=== PATIENT | female | born 1925 | race Asian ===

== ENCOUNTER 2016-07-05 15:50 | Inpatient (IN) | payer OTHER ==
[~2016-07-05] VITALS: Ht 152.4 cm; Wt 45.4 kg
--- NOTE | 2016-07-05 15:56 | NUR ---
Dr. Ruelas evaluating patient while still on ambulance gurney in [place].
[2016-07-05] MEDS ORDERED: LABETALOL 100 MG/20 ML VIAL IVP ONE ×3 (16:05→18:30)
--- NOTE | 2016-07-05 16:08 | NUR ---
Patient transferred to bed 6 for further care. PROCESS CONTROL BOARD OPERATOR evaluating patient at bedside.
[2016-07-05 16:11] VITALS: BP 230/109
[2016-07-05] MEDS ORDERED: ZESTRIL20 MG PO (16:35)
[2016-07-05] MEDS ORDERED: BROMSITE5 ML OP (16:35)
[2016-07-05] MEDS ORDERED: MOTRIN600 MG PO (16:35)
[2016-07-05] MEDS ORDERED: HYDRALAZINE PO (16:35)
[2016-07-05] MEDS ORDERED: BESIVANCE 5 ML5 ML LEFT EYE (16:35)
[2016-07-05] MEDS ORDERED: MYCELEX10 MG MM (16:35)
[2016-07-05] MEDS ORDERED: LOTRIMIN 1%30 GM TP (16:35)
[2016-07-05] MEDS ORDERED: PRED FORTE 1% OP5 ML OP (16:35)
[2016-07-05] MEDS ORDERED: METOPROLOL TART50 M1 PO (16:35)
[2016-07-05] MEDS ORDERED: PRAVASTATIN SOD40 MG PO (16:35)
--- NOTE | 2016-07-05 16:57 | NUR ---
89/F sangeetha from [facility] for evaluation of elevated blood pressure. Per EMS, nurse at facility was checking patient's vital signs and noted a high blood pressure so she called paramedics. Last blood pressure given to me by paramedics was 235/106. Patient denies pain. Denies SULTANA, denies changes in vision. 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 Patient is AOX4, no SOB, denies chest pain. Pt states she took all her meds this am. Hx HTN.
--- NOTE | 2016-07-05 17:58 | NUR ---
Patient appears to be resting comfortably in bed. Respirations even and unlabored.
--- NOTE | 2016-07-05 19:13 | NUR ---
Pt report given to Glenn LEIGH. Transfer of care at this time.
[2016-07-05] MEDS ORDERED: METOPROLOL SUCCINATE 50 MG TABER PO ONE (19:25)
[2016-07-05] MEDS ORDERED: ENALAPRILAT 2.5 MG/2 ML VIAL IVP ONE (19:55)
[2016-07-05] MEDS ORDERED: cloNIDine 0.1 MG TAB PO ONE (20:40)
[2016-07-05] MEDS ORDERED: ONDANSETRON 4 MG/2 ML VIAL IVP PRN (20:45)
[2016-07-05] MEDS ORDERED: MORPHINE SULFATE 2 MG/ML SYR IVP PRN (20:45)
[2016-07-05] MEDS ORDERED: DOCUSATE SODIUM 100 MG GELCAP PO PRN (20:45)
[2016-07-05] MEDS ORDERED: ACETAMINOPHEN 325 MG TAB PO PRN (20:45)
[2016-07-05] MEDS: LISINOPRIL 20 MG TAB PO SCH (20:50)
[2016-07-05] MEDS ORDERED: IBUPROFEN 600 MG TAB PO PRN (20:50)
[2016-07-05] MEDS ORDERED: NON-FORMULARY ITEM (Hydralazine HCl (Hydralazine Hcl) 100 MG) PO SCH (20:50)
[2016-07-05] MEDS ORDERED: CLOTRIMAZOLE 10 MG MM SCH (20:50)
[2016-07-05] MEDS ORDERED: BROMFENAC SODIUM OP SCH (21:00)
[2016-07-05] MEDS ORDERED: CLOTRIMAZOLE 1% 30 GM CRM TUBE TP SCH (21:00)
[2016-07-05] MEDS: METOPROLOL 50 MG TAB PO SCH ×2 (21:00→22:28)
--- NOTE | 2016-07-05 21:24 | NUR ---
Patient will be admitted to care of DR PATEL. Admited to TELE 108A. Will go to rooM 108A. Belongings list completed. Report to PHUONG LEIGH.
[2016-07-05 21:30] VITALS: BP 187/77
--- NOTE | 2016-07-05 21:30 | NUR ---
Admitted from ER, with chief complaint of HTN. 89 y/o ,Female, Cooperative, AOX4, ABLE TO VERBALIZE NEEDS. PT AMBULATES INDEPENDENTLY WITH STEADY GAIT AND STANDBY ASSIST. BP 187/77, PT DENIES CP, SOB, DIZZINESS, N/V, OR S/S OF ACUTE DISTRESS. VOCAL TEACHER IN PLACE. PT WEARS GLASSES, BILATERAL HEARING AIDS, UPPER AND LOWER DENTURES. ALL NEEDS MET AT THIS TIME. IV ACCESS ASYMPTOMATIC, PATENT AND INTACT. IVF INFUSING WELL. oriented to call light, bed, phone,television, bathroom, smoking policy, visiting hours, procedures, ID bracelet on. Belongings list checked. DISCUSSED AND REVIEWED PLAN OF CARE WITH PT. PT VERBALIZES UNDERSTANDING. SAFETY MEASURES ENSURED. CALL LIGHT WITHIN REACH. PT ENCOURAGED TO CALL FOR HELP WHEN NEEDING ASSISTANCE. WILL CONTINUE TO MONITOR.
[2016-07-05] MEDS ORDERED: cefTRIAXone 1,000 MG VIAL ONE (22:23)
[2016-07-05] MEDS: NACL 0.9% 500 ML IV SCH (22:29)
--- NOTE | 2016-07-05 22:30 | NUR ---
LOTRIMIN AND LISINOPRIL HELD DUE TO MEDS NOT AVAILABLE PER PHOTOGRAPHIC COLORIST. DUE MEDICATIONS ROCEPHIN AND METOPROLOL ADMINISTERED WITH EDUCATION. PT TOLERATED WELL. PT VERBALIZES UNDERSTANDING. IVF INFUSING WELL. ALL NEEDS MET. SAFETY MEASURES ENSURED. CALL LIGHT WITHIN REACH. WILL CONTINUE TO MONITOR.
[2016-07-06] VITALS: BP 145/63
--- NOTE | 2016-07-06 00:57 | NUR ---
DR LINK, ADMINISTRATIVE ASSISTANT FRONT DESK FOR DR PATEL, PAGED. MD MADE AWARE OF HIGH BLOOD PRESSURE 187/77 UPON ADMISSION AND 145/63 AT 0000, NO ORDERS RECEIVED FOR PRN BP MEDS. INSTRUCTED TO GIVE AM BP MEDS EARLY IF BP GOES HIGHER. MD MADE AWARE OF O2 SAT 90-91% WHILE SLEEPING, NO ORDERS FOR O2 NC, INSTRUCTED TO MONITOR AND NOTIFY MD IF O2 SAT GOES LOWER.
[2016-07-06] MEDS ORDERED: ALBUTEROL SULFATE/IPRATROPIU 3 ML SOL IH PRN (01:00)
--- NOTE | 2016-07-06 02:00 | NUR ---
NOTIFIED BY TRUCK REPAIR SUPERVISOR THAT PT WAS SEEN AMBULATING INDEPENDENTLY AT BEDSIDE. PT STATED SHE WANTED TO GO TO THE RESTROOM. PT DENIES DIZZINESS OR S/S OF ACUTE DISTRESS. PT INSTRUCTED TO CHANGE POSITIONS SLOWLY AND USE THE CALL LIGHT FOR ASSISTANCE. PT OBSERVED TO HAVE STEADY GAIT WITH STANDBY ASSISTANCE TO THE RESTROOM. CONDITION STABLE. SAFETY MEASURES AND BED ALARM ENSURED. CALL LIGHT WITHIN REACH. WILL CONTINUE TO MONITOR.
[2016-07-06 04:00] VITALS: BP 150/70
--- NOTE | 2016-07-06 04:00 | NUR ---
CONDITION STABLE. PT SLEEPING AT THIS TIME. SAFETY MEASURES ENSURED. CALL LIGHT WITHIN REACH. WILL CONTINUE TO MONITOR.
[2016-07-06] MEDS: NACL 0.9% 500 ML IV SCH ×2 (06:55→16:40)
--- NOTE | 2016-07-06 07:30 | NUR ---
RECEIVED PT REPORT FROM NIGHT NURSE AT BEDSIDE. PT IS AAOX4 ON ROOM AIR AND SHOWS NO S/S OF DISTRESS. PT ON TELE MONITORING. PT SKIN IS INTACT. PT AMB TO BR WITH A STEADY GAIT. PT HAS NOTED IV ON THE R HAND. PT BED IS LOWERED FLAT AND WITH CALL LIGHT WITHIN REACH.
--- NOTE | 2016-07-06 07:36 | NUR ---
CONDITION STABLE. ENDORSED PLAN OF CARE TO DAYSHIFT NURSE.
[2016-07-06 07:51] VITALS: BP 153/86
[2016-07-06] MEDS ORDERED: prednisoLONE 1% OP 5 ML BTL OP SCH (09:00)
[2016-07-06] MEDS ORDERED: BESIFLOXACIN HCL LEFT EYE SCH (09:00)
[2016-07-06] MEDS ORDERED: CLOTRIMAZOLE 1% 30 GM CRM TUBE TP SCH (09:00)
[2016-07-06] MEDS ORDERED: METOPROLOL 50 MG TAB PO SCH (09:00)
--- NOTE | 2016-07-06 09:00 | NUR ---
ADMINISTERED SCHEDULED MEDICATIONS. GAVE PT EDUCATION ABOUT MEDICATIONS GIVEN. PT VERBALIZED UNDERSTANDING. PT TOLERATED WELL. PT IS ON ROOM AIR AND SHOWS NO S/S OF DISTRESS NOTED.
--- NOTE | 2016-07-06 09:07 | NUR ---
PATIENT HAS BEEN SCREENED AND CATEGORIZED MODERATE NUTRITION RISK. PATIENT WILL BE SEEN WITHIN 3-5 DAYS OF ADMISSION. 07/08/16-07/10/[address]
[2016-07-06] MEDS: LACTOBACILLUS RHAMNOSUS GG 1 EACH CAP PO SCH (09:33)
[2016-07-06] MEDS: hydrALAZINE 25 MG TAB PO SCH ×3 (09:34→16:41)
[2016-07-06] MEDS: LISINOPRIL 20 MG TAB PO SCH (09:34)
[2016-07-06] MEDS: SIMVASTATIN 40 MG TAB PO SCH (09:35)
--- NOTE | 2016-07-06 09:52 | NUR ---
PT BEING SEEN BY US MELO LONG.
--- NOTE | 2016-07-06 10:48 | NUR ---
PT IN ROOM RESTING AND SHOWS NO S/S OF DISTRESS. WILL CONTINUE TO MONITOR.
[2016-07-06 11:56] VITALS: BP 151/75
--- NOTE | 2016-07-06 12:00 | NUR ---
ADMINISTERED SCHEDULED MEDICATION. PT TOLERATED WELL. PT IN BED RESTING ON ROOM AIR AND SHOWS NO S/S OF DISTRESS.
[2016-07-06] MEDS ORDERED: prednisoLONE 1% OP 5 ML BTL LEFT EYE SCH (13:30)
--- NOTE | 2016-07-06 13:30 | NUR ---
PT BEING SEEN BY DR ADAMS.
--- NOTE | 2016-07-06 14:55 | NUR ---
PT IN BED RESTING AND SHOWS NO S/S OF DISTRESS ON ROOM AIR.
--- NOTE | 2016-07-06 15:35 | NUR ---
PT BEING SEEN BY FINANCE PROFESSIONAL.
[2016-07-06 16:00] VITALS: BP 155/81
[2016-07-06] MEDS: prednisoLONE 1% OP 5 ML BTL LEFT EYE SCH ×2 (16:50→20:27)
--- NOTE | 2016-07-06 17:00 | NUR ---
ADMINISTERED SCHEDULED MEDICATIONS. PT TOLERATED WELL. PT RESTING IN BED NOW AND SHOWS NO S/S OF DISTRESS. WILL CONTINUE TO MONITOR.
[2016-07-06] MEDS: MOXIFLOXACIN 0.5% OP 3 ML BTL OP SCH (18:44)
--- NOTE | 2016-07-06 19:20 | NUR ---
GAVE PT REPORT TO NIGHT NURSE AT BEDSIDE. PT ENDORSED IN STABLE CONDITION.
--- NOTE | 2016-07-06 19:30 | NUR ---
RECEIVED REPORT FROM BAKARI LEIGH AT BEDSIDE. PT IS ALERT AWAKE ORIENTED X4. INITIAL ASSESSMENT DONE. NO S/S OF RESPIRATORY DISTRESS OR SOB NOTED. NO C/O PAIN OR ANY DISCOMFORT AT THIS TIME. PLAN OF CARE REVIEWED TO PT AND VERBALIZED UNDERSTANDING. CALL LIGHT WITHIN REACH. WILL CONTINUE TO MONITOR.
[2016-07-06 20:00] VITALS: BP 173/79
[2016-07-06] MEDS: KETOROLAC 0.5% OP 3 ML BTL OP SCH (20:27)
[2016-07-06] MEDS: METOPROLOL 50 MG TAB PO SCH (20:28)
[2016-07-07] VITALS (9 sets, daily range): BP systolic 142–184; BP diastolic 63–96
--- NOTE | 2016-07-07 00:20 | NUR ---
PT IS SLEEPING RIGHT NOW BUT EASILY AROUSABLE. NO S/S OF ANY DISCOMFORT AT THIS TIME. ALL NEEDS ARE ATTENDED. CALL LIGHT WITHIN REACH. WILL CONTINUE TO MONITOR.
[2016-07-07] MEDS: NACL 0.9% 500 ML IV SCH ×3 (03:35→20:10)
--- NOTE | 2016-07-07 05:20 | NUR ---
AM CARE RENDERED. BED LINEN CHANGED. INSTRUCTED PT TO REPOSITION. KEPT CLEAN AND DRY. CALL LIGHT WITHIN REACH. WILL CONTINUE TO MONITOR.
--- NOTE | 2016-07-07 07:10 | NUR ---
RECEIVED PT REPORT FROM NIGHT NURSE AT BEDSIDE. PT IS AAOX4 AND SHOWS NO S/S OF DISTRESS ON ROOM AIR. PT SKIN IS INTACT. PROVIDED STAND BY ASSIST WHILE PT AMB TO BR AND TO BED WITH A STEADY GAIT. PT DENIES ANY SOB, CHEST PAIN, DIZZINESS, OR PAIN. PT IS ON TELE MONITORING. NOTED IV ON THE R HAND WITH IVF'S RUNNING. PT BED IS LOWERED FLAT AND CALL LIGHT IS WITHIN REACH.
--- NOTE | 2016-07-07 07:17 | NUR ---
PT HAS NO S/S OF ANY DISCOMFORT. PLAN OF CARE ENDORSED TO BAKARI LEIGH AT BEDSIDE FOR CONTINUITY OF CARE.
--- NOTE | 2016-07-07 07:37 | NUR ---
PT IN BED SITTING ON THE SIDE EATING BREAKFAST. PT IS TOLERATING WELL.
[2016-07-07] MEDS ORDERED: hydrALAZINE 20 MG/ML VIAL IVP SCH (08:06)
[2016-07-07] MEDS: LACTOBACILLUS RHAMNOSUS GG 1 EACH CAP PO SCH (08:44)
[2016-07-07] MEDS: SIMVASTATIN 40 MG TAB PO SCH (08:45)
[2016-07-07] MEDS: LISINOPRIL 20 MG TAB PO SCH (08:46)
[2016-07-07] MEDS: METOPROLOL 50 MG TAB PO SCH (08:46)
[2016-07-07] MEDS: KETOROLAC 0.5% OP 3 ML BTL OP SCH ×2 (08:48→20:07)
[2016-07-07] MEDS: MOXIFLOXACIN 0.5% OP 3 ML BTL OP SCH ×3 (08:48→17:33)
--- NOTE | 2016-07-07 09:00 | NUR ---
ADMINISTERED SCHEDULED MEDICATIONS. PT TOLERATED WELL. DR PATEL AND DR ADAMS SAW PT AND ARE AWARE OF PT HIGH BP. DR ADVISED NOT TO GIVE SCHEDULED HYDRALAZINE 100MG PO UNTIL BP IS REASSESSED WITHIN 30 MIN AFTER GIVEN HYDRALAZINE 10MG IVP. WILL CONTINUE TO MONITOR PT CARE.
--- NOTE | 2016-07-07 09:42 | NUR ---
REASSESSED PT BP 152/63 HR 80. PT IS AAOX4 AND SHOWS NO S/S OF DISTRESS ON ROOM AIR. DR PATEL WAS MADE AWARE OF PT BP AND ORDERED TO GIVE MORNING SCHEDULED HYDRALAZINE 100MG PO.
--- NOTE | 2016-07-07 10:10 | NUR ---
ADMINISTERED SCHEDULED MEDICATIONS. PT BP WAS 142/69 HR 81. PT TOLERATED ACTIVITY WELL. PT EDUCATION ABOUT SIDE EFFECTS OF TAKEN BLOOD PRESSURE MEDICATION AND TAUGHT HOW TO USE CALL LIGHT BEFORE GETTING UP FROM BED TO USE RESTROOM. WILL CONTINUE TO MONITOR.
[2016-07-07] MEDS: hydrALAZINE 25 MG TAB PO SCH ×3 (10:15→17:32)
[2016-07-07] MEDS: prednisoLONE 1% OP 5 ML BTL LEFT EYE SCH ×4 (10:16→20:08)
--- NOTE | 2016-07-07 10:50 | NUR ---
PT RESTING COMFORTABLY IN BED AND SHOWS NO S/S OF DISTRESS ON ROOM AIR. ALL NEEDS WERE MET. WILL CONTINUE TO MONITOR.
--- NOTE | 2016-07-07 12:20 | NUR ---
PT IN BED RESTING AND SHOWS NO S/S OF DISTRESS ON ROOM AIR. WILL CONTINUE TO MONITOR.
--- NOTE | 2016-07-07 13:05 | NUR ---
ADMINISTERED SCHEDULED MEDICATIONS. PT TOLERATED WELL. PT IS RESTING COMFORTABLY AND SHOWS NO S/S OF DISTRESS ON ROOM AIR.
--- NOTE | 2016-07-07 14:20 | NUR ---
SS NOTE: PER ABI FROM [facility] ([phone]), PT IS CURRENTLY ON SERVICE WITH THEM AND WAS MADE AWARE THAT PT WILL POSSIBLY BE DISCHARGED TODAY. SHE STATED THAT THEY WILL FOLLOW UP WITH PT AT [facility].
--- NOTE | 2016-07-07 14:30 | NUR ---
PT IS IN BED RESTING COMFORTABLY IN BED WITH NO S/S OF DISTRESS ON ROOM AIR.
--- NOTE | 2016-07-07 14:50 | NUR ---
PT STATED "I DON'T FEEL GOOD. I CANNOT EAT." PT STATED SHE FEELS NAUSEATED AND FEELING LIKE SHE WANTS TO VOMIT. DR ADAMS IS AWARE AND ORDERED ZOFRAN FOR PT. RN GOT BP AND IT WAS 184/78. DR ADAMS IS AWARE AND ORDERED HYDRALAZINE 10MG IVP. PT DENIES SOB, CHEST PAIN, AND HEADACHE. PT STATES HER VISION IS BLURRY. WILL NOTIFY MD AND MONITOR PT BP.
--- NOTE | 2016-07-07 15:30 | NUR ---
ADMINISTERED HYDRALAZINE 10MG IVP. BP 184/78 HR 79. WILL REASSESS BP.
[2016-07-07] MEDS: hydrALAZINE 20 MG/ML VIAL IVP PRN (15:31)
--- NOTE | 2016-07-07 16:00 | NUR ---
PT BP IS 178/79, HR 77. WILL NOTIFY DR ADAMS. PT DENIES HEADACHE, DIZZINESS, SOB, AND CHEST PAIN. PT SHOWS NO S/S OF DISTRESS. WILL CONTINUE TO MONITOR.
--- NOTE | 2016-07-07 16:05 | NUR ---
DR ADAMS IS AWARE OF BP. MD ADVISES TO RECHECK AND USE DIFFERENT MACHINE.
--- NOTE | 2016-07-07 16:10 | NUR ---
CAME INTO PT ROOM PT IV WAS LEAKING. IV WAS DISCONTINUED. NEW IV LINE WAS DONE ON THE L FA 22 GAUGE. IVF'S RUNNING THROUGH PATENT AND INTACT IV.
--- NOTE | 2016-07-07 16:15 | NUR ---
PT BP WAS REASSESSED WITH NEW BP MACHINE. BP WAS 164/[address] ADAMS WAS NOTIFIED.
--- NOTE | 2016-07-07 17:36 | NUR ---
ADMINISTERED SCHEDULED MEDICATIONS. PT IS ON ROOM AIR AND SHOWS NO S/S OF DISTRESS NOTED. ASSESS BP AT 164/77 HR 78. WILL CONTINUE TO MONITOR PT.
--- NOTE | 2016-07-07 18:00 | NUR ---
PT WAS FOUND AMB TO BR WITH IV LINE DISCONNECTED FROM IV PUMP. IV LINE WAS BLEEDING RN CLEANED IT AND DISINFECTED IT WITH ALCOHOL SWABS. IV LINE IS CONNECTED BACK TO IV CLEAN PATENT AND INTACT. PT BED IS LOWERED FLAT AND WITH CALL LIGHT WITHIN REACH. PT DENIES NO PAIN AT IV SITE, NO HEADACHES, NO SOB, AND NO CHEST PAIN. PT WAS EDUCATED IN USING THE CALL LIGHT BEFORE GOING TO USE THE RESTROOM.
--- NOTE | 2016-07-07 19:20 | NUR ---
GAVE REPORT TO NIGHT NURSE AT BEDSIDE. PT ENDORSED IN STABLE CONDITION.
--- NOTE | 2016-07-07 19:25 | NUR ---
RECEIVED PT AWAKE ON BED, AAOX4, VITAL SIGNS STABLE, BP SLIGHTLY ELEVATED, ASYMPTOMATIC, DENIES ANY PAIN, IVF INFUSING WELL, POC DISCUSSED, SAFETY MEASURES IN PLACE, CALL LIGHT WITHIN REACH.
[2016-07-07] MEDS: METOPROLOL 25 MG TAB PO SCH (20:04)
[2016-07-07] MEDS: ISOSORBIDE DINITRATE 10 MG TAB PO SCH (20:04)
--- NOTE | 2016-07-07 20:31 | NUR ---
STARTED ON BP MEDICATION WITH EDUCATION PROVIDED, EYE DROPS ADMINISTERED, REFUSED DINNER, OFFERED OTHER KIND OF FOOD BUT PT REFUSED AT THIS TIME, ALL NEEDS ATTENDED.
[2016-07-07] MEDS ORDERED: METOPROLOL 50 MG TAB PO SCH (21:00)
--- NOTE | 2016-07-07 23:00 | NUR ---
PT AMBULATED TO BR WITH STEADY GAIT AND VOIDED FREELY, MONITORED CLOSELY.
[2016-07-08] VITALS: BP 133/80
--- NOTE | 2016-07-08 | NUR ---
PT SLEEPING, EASILY AROUSABLE, VITAL SIGNS STABLE, DENIES ANY PAIN, IVF INFUSING WELL, CONTINUE TO MONITOR CLOSELY.
[2016-07-08 04:00] VITALS: BP 141/71
--- NOTE | 2016-07-08 04:00 | NUR ---
PT SLEEPING, EASILY AROUSABLE, VITAL SIGNS STABLE, DENIES ANY PAIN, MONITORED CLOSELY.
--- NOTE | 2016-07-08 07:25 | NUR ---
PT AWAKE, NO DISTRESS NOTED, REPORT GIVEN TO LU ELKINS FOR CONTINUITY OF CARE.
--- NOTE | 2016-07-08 07:26 | NUR ---
RECEIVED REPORT OF PT AT BEDSIDE FROM [facility] NURSE. INTRODUCED OURSELVES AND UPDATED THE BOARD. PT IS ALERT AWAKE AND ORIENTED. PT HAS IV ON L F/A 22 G RUNNING NS@50ML/HR. BP WAS 200/79, PULSE 82. WILL GIVE PRN HYDRALAZINE. PT HAS NO OTHER COMPLAINTS AT THIS TIME. PT IS AMBULATORY WITH ASSIST. CALL LIGHT WITHIN REACH. WILL CONTINUE TO MONITOR.
[2016-07-08] MEDS: hydrALAZINE 20 MG/ML VIAL IVP PRN (07:53)
[2016-07-08 08:00] VITALS: BP 200/79
--- NOTE | 2016-07-08 08:10 | NUR ---
RECHECKED BP, 159/85, PULSE 96. WILL CONTINUE TO MONITOR.
[2016-07-08] MEDS ORDERED: POTASSIUM CHLORIDE 10 MEQ TABER PO SCH (08:39)
[2016-07-08] MEDS: NACL 0.9% 500 ML IV SCH ×2 (08:55→13:24)
[2016-07-08] MEDS: hydrALAZINE 25 MG TAB PO SCH ×3 (09:00→16:29)
[2016-07-08] MEDS: KETOROLAC 0.5% OP 3 ML BTL OP SCH ×2 (09:50→20:26)
--- NOTE | 2016-07-08 09:50 | NUR ---
PASSED MORNING MEDS. PT'S BP IS 154/59. HELD HYDRALAZINE 4 TABS. WILL CONTINUE TO MONITOR BP. PT TOLERATED MEDS WELL.
[2016-07-08] MEDS: prednisoLONE 1% OP 5 ML BTL LEFT EYE SCH ×4 (09:51→20:26)
[2016-07-08] MEDS: MOXIFLOXACIN 0.5% OP 3 ML BTL OP SCH ×3 (09:51→16:30)
[2016-07-08] MEDS: LACTOBACILLUS RHAMNOSUS GG 1 EACH CAP PO SCH (09:51)
[2016-07-08] MEDS: SIMVASTATIN 40 MG TAB PO SCH (09:51)
[2016-07-08] MEDS: LISINOPRIL 20 MG TAB PO SCH (09:54)
[2016-07-08] MEDS: METOPROLOL 25 MG TAB PO SCH ×2 (09:54→20:27)
[2016-07-08] MEDS: ISOSORBIDE DINITRATE 10 MG TAB PO SCH ×2 (09:59→20:27)
--- NOTE | 2016-07-08 11:50 | NUR ---
PT'S BP IS 136/72, PULSE 89. WILL CONTINUE TO MONITOR.
[2016-07-08 12:00] VITALS: BP 136/72
--- NOTE | 2016-07-08 13:00 | NUR ---
PT TOLERATED 1300 MEDS WELL. WENT BACK TO BED. NO COMPLAINTS AT THIS TIME. WILL CONTINUE TO MONITOR.
--- NOTE | 2016-07-08 14:38 | NUR ---
PT IS SLEEPING IN BED. NO DISTRESS NOTED. CALL LIGHT WITHIN REACH. WILL CONTINUE TO MONITOR.
[2016-07-08 16:00] VITALS: BP 137/77
--- NOTE | 2016-07-08 16:40 | NUR ---
PT GOT UP TO GO TO BATHROOM. TOLERATED WELL. CALL LIGHT WITHIN REACH. WILL CONTINUE TO MONITOR.
--- NOTE | 2016-07-08 18:00 | NUR ---
PT RESTING IN BED. CALL LIGHT WITHIN REACH. WILL CONTINUE TO MONITOR.
--- NOTE | 2016-07-08 19:10 | NUR ---
ENDORSED CARE OF PT TO REGIONAL CONSTRUCTION MANAGER NURSE AT BEDSIDE. PT IN STABLE CONDITION.
--- NOTE | 2016-07-08 19:20 | NUR ---
RECEIVED PT IN STABLE CONDITION FROM AM NURSE. AWAKE,ALERT AND ORIENTED X4. ON TELE MONITOR. WITH NO C/O ANY DISCOMFORT NOR PAIN NOTED. HAS IVF INFUSING WELL ON THE LT FA#22. CLEAR AND PATENT. PLAN OF CARE DISCUSSED AND VERBALIZED UNDERSTANDING. CALL LIGHT PLACED WITHIN EASY REACH. WILL CONTINUE TO MONITOR.
[2016-07-08 20:00] VITALS: BP 136/66
--- NOTE | 2016-07-08 20:27 | NUR ---
TOOK ALL NIGHT MEDS. TOLERATED WELL. WILL CONTINUE TO MONITOR.
--- NOTE | 2016-07-08 22:00 | NUR ---
SLEEPING AT THIS TIME. NO S/S OF ANY DISCOMFORT NOR PAIN NOTED.
[2016-07-09 00:15] VITALS: BP 148/64
--- NOTE | 2016-07-09 02:00 | NUR ---
SLEEPING WELL AT THIS TIME. NO S/S OF ANY DISCOMFORT NOR PAIN NOTED.
[2016-07-09 03:39] VITALS: BP 147/71
[2016-07-09] MEDS: NACL 0.9% 500 ML IV SCH ×2 (04:55→14:44)
--- NOTE | 2016-07-09 05:30 | NUR ---
BLOOD WAS DRAWN THIS AM. WILL FOLLOW UP RESULT.
--- NOTE | 2016-07-09 07:20 | NUR ---
RECEIVED PT IN BED. AWAKE, ALERT, ORIENTEDX4, NO SOB NOTED. DENIES ANY PAIN OR DISCOMFORT AT THIS TIME. POSITIVE BOWEL SOUNDS NOTED ON FOUR QUADRANTS. PT AMBULATORY WITH STAND BY BY ASSIST. DENIES ANY DISCOMFORT WITH BOWEL OR BLADDER ELIMINATION. SAFETY PRECAUTION IN PLACE. CALL LIGHT WITHIN REACH.
--- NOTE | 2016-07-09 07:23 | NUR ---
ENDORSED PT IN STABLE CONDITION TO AM NURSE FOR CONTINUITY OF CARE.
[2016-07-09 08:00] VITALS: BP 167/76
[2016-07-09] MEDS: MOXIFLOXACIN 0.5% OP 3 ML BTL OP SCH ×2 (08:24→12:37)
[2016-07-09] MEDS: LACTOBACILLUS RHAMNOSUS GG 1 EACH CAP PO SCH (08:26)
[2016-07-09] MEDS: METOPROLOL 25 MG TAB PO SCH (08:26)
[2016-07-09] MEDS: LISINOPRIL 20 MG TAB PO SCH (08:27)
[2016-07-09] MEDS: SIMVASTATIN 40 MG TAB PO SCH (08:27)
[2016-07-09] MEDS: ISOSORBIDE DINITRATE 10 MG TAB PO SCH (08:27)
[2016-07-09] MEDS: prednisoLONE 1% OP 5 ML BTL LEFT EYE SCH ×2 (08:29→12:37)
[2016-07-09] MEDS: KETOROLAC 0.5% OP 3 ML BTL OP SCH (08:42)
[2016-07-09] MEDS: hydrALAZINE 25 MG TAB PO SCH ×2 (08:42→12:36)
[2016-07-09] MEDS ORDERED: LOPRESSOR25 MG PO (11:16)
[2016-07-09] MEDS ORDERED: LISINOPRIL20 M1 PO (11:16)
[2016-07-09] MEDS ORDERED: ISORDIL10 M1 PO (11:16)
[2016-07-09 12:00] VITALS: BP 164/74
[2016-07-09 14:12] VITALS: BP 159/68
--- NOTE | 2016-07-09 14:59 | NUR ---
CALLED ISMA CALDERON TO GIVE REPORT SPOKE WITH HAPPINESS MADE AWARE OF DISCHARGE.
--- NOTE | 2016-07-09 15:31 | NUR ---
DISCHARGE ORDERS FINALIZED BY MD, DISCHARGE INSTRUCTION AND HEALTH TEACHINGS GIVEN TO PT. PT VERBALIZED UNDERSTANDING. IV CANNULA REMOVED AND INTACT. PT SIGNED DISCHARGE PAPERS. NO SOB, DENIES ANY PAIN OR DISCOMFORT AT THIS TIME. NAME ARMBAND REMOVED. WHEELED PT OUT OF HOSPITAL GOING TO [facility], WITH RN ON STABLE CONDITION.
== END 2016-07-09 15:30 | DRG 304 ==
LOC: MED 16:12 → MTU 20:47
PROVIDERS: ADMIT Family Medicine; ATTEND Family Medicine
DX: I16.0 Hypertensive urgency (principal); G93.41 Metabolic encephalopathy; E44.0 Moderate protein-calorie malnutrition; N39.0 Urinary tract infection, site not specified; I42.9 Cardiomyopathy, unspecified; Q61.02 Congenital multiple renal cysts; Z68.1 Body mass index [BMI] 19.9 or less, adult; I11.9 Hypertensive heart disease without heart failure; E87.6 Hypokalemia; E11.9 Type 2 diabetes mellitus without complications; Z53.29 Procedure and treatment not carried out because of patient's decision for other reasons; Z79.899 Other long term (current) drug therapy